=== PATIENT | female | born 1945 | race Caucasian/White ===

== ENCOUNTER → 2016-05-19 | Outpatient (CLI) | payer OTHER, MEDICARE | LOC: BHFA 10:00 | PROVIDERS: ATTEND Internal Medicine Interventional Cardiology | DX: I35.1 Nonrheumatic aortic (valve) insufficiency (principal) ==

== ENCOUNTER 2017-09-28 15:47 | Observation (INO) | payer OTHER, MEDICARE ==
--- NOTE | 2017-09-28 15:48 | EDPHY ---
H & P Time Seen by Provider: 09/28/17 15:48 HPI/ROS: HPI CHIEF COMPLAINT: Chest Pain. HISTORY OF PRESENT ILLNESS: Patient is a very pleasant 72-year-old female, she presents emergency room with chest discomfort. She was initially seen by Cardiology earlier today by Dr. Scott, and referred to the emergency room to have blood work and repeat EKG done. Patient states she has been in [place] recently and approximately 10 days ago she developed 2.5 hr of chest discomfort she describes a pressure sensation in the center of her chest. He did radiate down her right arm and then down her left arm. It went away on its own it was at rest. She states this started when she was in the bathroom. Nonexertional. Patient then states that 2 days ago at rest again she developed some pressure and heaviness in the center of her chest did not radiate. It lasted approximately an hour. She decided to make a follow-up appointment with Dr. Aiken, who is her security rover however was unable to get in and saw Dr. Scott today. Patient states that today she walked up the stairs to the cardiology appointment developed some exertional chest discomfort in the center of her chest. It lasted very briefly. She currently presents to the emergency room stating that she has 2/10 pain in her chest. Substernal. She does endorse some dyspnea on exertion. No pleuritic pain. She denies any abnormal lower extremity swelling. She does get trace edema around her ankle sometimes. She does state that she was recently in [place] and flew prolonged flights. However were compression stockings. Patient does state that she had a cardiac catheterization she thinks approximately 20 years ago that was normal this was for an abnormal troponin. Dr. Gar was her Data Processing Clerk at that time. Past Medical History: Glaucoma, denies hypertension or hyperlipidemia, , endorses osteoporosis Past Surgical History: Multiple orthopedic fractures, left knee surgery, total hysterectomy Social History: Denies daily use of drugs alcohol tobacco. Family History: She has significant cardiovascular disease history in her father side. Her father of [place] at 74, grandfather [place] at 55. ROS REVIEW OF SYSTEMS: A comprehensive 10 point review of systems is otherwise negative aside from elements mentioned in the history of present illness. Exam Constitutional Appears well non-toxic, triage nursing summary reviewed, vital signs reviewed, awake/alert. Eyes normal conjunctivae and sclera, EOMI, PERRLA. HENT normal inspection, atraumatic, moist mucus membranes, no epistaxis, neck supple/ no meningismus, no raccoon eyes. Respiratory clear to auscultation bilaterally, normal breath sounds, no respiratory distress, no wheezing. Cardiovascular rate normal, regular rhythm, no murmur, no edema, distal pulses normal. Gastrointestinal soft, non-tender, no rebound, no guarding, normal bowel sounds, no distension, no pulsatile mass. Genitourinary no CVA tenderness. Musculoskeletal no significant lower edema, no midline vertebral tenderness, full range of motion, no calf swelling, no tenderness of extremities, no meningismus, good pulses, neurovascularly intact. Skin pink, warm, & dry, no rash, skin atraumatic. Neurologic awake, alert and oriented x 3, AAOx3, moves all 4 extremities equally, motor intact, sensory intact, CN II-XII intact, normal cerebellar, normal vision, normal speech. Psychiatric normal mood/affect. Heme/Lymph/Immune no lymphadenopathy. Differential diagnosis includes but is not limited to: ACS, atypical chest pain , pneumothorax, pneumonia, pulmonary embolism, aortic dissection, congestive heart failure, tumor, musculoskeletal pain, esophageal pain, GERD, peptic ulcer disease, pancreatitis Medical Decision Making: Plan for this patient IV establishment with full cafeteria monitor obtain EKG, obtain troponin, obtain D-dimer, two view chest x- ray, full-dose aspirin will re-evaluate. Re-evaluation: EKG interpretation by me on record in Patient [employer] system. Impression time of EKG 16 12, this is sinus rhythm rate of 78 borderline T-wave abnormalities lead to 3 AVF. There is no ST elevation there is some T-wave flattening in V5 V6. When I compare this EKG to her previous EKG dated today she had EKG done at 2: 31 p.m. Appears to be similar morphology with the abnormal T-waves in inferior leads. HEART Score for Major Cardiac Events from [email or web address] on 09/28/2017 All calculations should be rechecked by clinician prior to use RESULT SUMMARY: 5 points Moderate Score (4-6 points) Risk of MACE of 12-16.6%. INPUTS: History > 1 = Moderately suspicious EKG > 1 = Non-specific repolarization disturbance Age > 2 = 65 Risk factors > 1 = 1-2 risk factors Initial troponin > 0 = normal limit 1834: I discussed this case in detail with Dr. Aguillon, recommend hospital admission for serial enzymes and stress test. I discussed this in detail greatly with the patient the patient's they have agreed for admission. Refer motion for cardiac evaluation and stress test. 1834: Patient is currently chest pain-free. 1844: Spoke with zahra Amador to admit. Source: Patient, Family, RN/MD - Personal History Tetanus Vaccine Date: 5 years ago Constitutional: Initial Vital Signs Temperature (C) 36.3 C 09/28/17 15:53 Heart Rate 82 09/28/17 15:53 Respiratory Rate 16 09/28/17 15:53 Blood Pressure 152/83 H 09/28/17 15:53 O2 Sat (%) 97 09/28/17 15:53 O2 Delivery Mode Room Air Allergies/Adverse Reactions: diazepam Allergy (Severe, Verified 09/28/17 18:59) HYPERACTIVE erythromycin base [Erythromycin Base] Allergy (Severe, Verified 09/28/17 18:59) NAUSEA/VOMITING morphine Allergy (Severe, Verified 09/28/17 18:59) Vomiting codeine [Codeine] Allergy (Unknown, Verified 09/28/17 18:59) Penicillins Allergy (Verified 09/28/17 18:59) Home Medications: Medication Instructions Recorded Calcium Carb W/Vit D [Calcium Carb 500 mg PO DAILY 09/28/17 W/Vit D 500/200 (*)] Cholecalciferol Vit D3 [Vitamin D3 1,000 units PO DAILY 09/28/17 (*)] Dorzolamide/Timolol/Pf [Cosopt Pf 1 drop RTEYE BID 09/28/17 Eye Drops] Doxepin HCl [SINEquan 10 MG (*)] 10 mg PO HS 09/28/17 Estradiol [Estradiol 1 MG (*)] 0.5 mg PO SUMOWEFR 09/28/17 Latanoprost 0.005% [Xalatan 0.005% 1 drops EACHEYE HS 09/28/17 (*)] Magnesium Oxide [Magnesium Oxide 400 mg PO DAILY 09/28/17 400 mg (*)] Anza-3 Fatty Acids [Fish Oil 1000 1,000 mg PO DAILY 09/28/17 mg (*)] Vitamin B Complex [Vitamin B 1 each PO DAILY 09/28/17 Complex (OTC)] Medical Decision Making - Data Points Laboratory Results: Laboratory Results 09/28/17 16:10 Medications Given: Discontinued Medications Aspirin Buffered (Aspirin Ec) 325 mg PO EDNOW ONE Stop: 09/28/17 16:08 Last Admin: 09/28/17 16:27 Dose: 325 mg Aspirin Buffered (Aspirin Ec) 325 mg PO DAILY SUSAN Stop: 03/28/18 08:59 Last Admin: 09/29/17 09:23 Dose: 325 mg Calcium/Vitamin D (Calcium Carb W/Vit D) 500 mg PO DAILY SUSAN Stop: 03/28/18 08:59 Last Admin: 09/29/17 11:57 Dose: Not Given Cholecalciferol (Vitamin D) 1,000 units PO DAILY SUSAN Stop: 03/28/18 08:59 Last Admin: 09/29/17 11:58 Dose: Not Given Doxepin HCl (Sinequan) 10 mg PO HS SUSAN Stop: 03/27/18 22:59 Last Admin: 09/28/17 23:02 Dose: 10 mg Estradiol (Estradiol) 0.5 mg PO SuMoWeFr@0900 SUSAN Stop: 03/28/18 08:59 Last Admin: 09/29/17 09:23 Dose: 0.5 mg Magnesium Oxide (Magnesium Oxide) 400 mg PO DAILY SUSAN Stop: 03/28/18 08:59 Last Admin: 09/29/17 11:58 Dose: Not Given Miscellaneous Medication (Dorzolamide/Timolol/Pf [Cosopt Pf Eye Drops]) 1 drop RTEYE BID SUSAN Stop: 03/28/18 08:59 Last Admin: 09/29/17 10:42 Dose: 1 drop Point of Care Test Results: Chemistry 09/28/17 09/28/17 16:20 16:16 POC Sodium 141 mEq/L mEq/L (135-145) POC Potassium 4.2 mEq/L mEq/L (3.3-5.0) POC Chloride 102.0 mEq/L mEq/L (97-110) POC Total CO2 28 mEq/L mEq/L (22-31) POC BUN 22 mg/dL mg/dL (7-23) POC Creatinine 1.1 mg/dL H mg/dL (0.6-1.0) POC Glucose 96 mg/dL mg/dL (70-100) POC Calcium 9.9 mg/dL mg/dL (8.5-10.4) POC Total Bilirubin 0.8 mg/dL mg/dL (0.1-1.4) POC AST 33 IU/L IU/L (14-46) POC ALT 20 IU/L IU/L (9-52) POC Alk Phosphatase 50 IU/L IU/L (38-126) POC Troponin I 0.00 ng/mL ng/mL (0.00-0.08) POC Total Protein 7.1 g/dL g/dL (6.3-8.2) POC Albumin 3.8 g/dL g/dL (3.5-5.0) Departure - Departure Disposition: [facility] Inpatient Acute Clinical Impression: Chest pain Qualifiers: Chest pain type: unspecified Qualified Code(s): R07.9 - Chest pain, unspecified Condition: Fair
[2017-09-28] MEDS ORDERED: ASPIRIN EC 325 MG TAB PO ONE (16:07)
--- NOTE | 2017-09-28 16:14 | CPEKG ---
Heart Rate: 78 RR Interval: 769 P-R Interval: 172 QRSD Interval: 74 QT Interval: 376 QTC Interval: 429 P Oxford: 71 QRS Oxford: 9 T Wave Oxford: -9 EKG Severity - BORDERLINE ECG - EKG Impression: SINUS RHYTHM EKG Impression: BORDERLINE T ABNORMALITIES, INFERIOR AND LATERAL LEADS Electronically Signed By: Lexi Aguillon 30-Sep-2017 08:27:24
[2017-09-28 17:44] LABS: PLATELET COUNT 222 10^3/uL (150-400)
[2017-09-28] MEDS ORDERED: ACETAMINOPHEN 325 MG TAB PO PRN (22:36)
[2017-09-28] MEDS ORDERED: ONDANSETRON 4 MG/2 ML VIAL IVP PRN (22:36)
[2017-09-28] MEDS ORDERED: oxyCODONE IR 5 MG TAB PO PRN (22:36)
[2017-09-28] MEDS ORDERED: traMADol 50 MG TAB PO PRN (22:36)
[2017-09-28] MEDS ORDERED: DOXEPIN HCL 10 MG CAP PO SCH (23:00)
--- NOTE | 2017-09-28 23:07 | GHP ---
[f rep st] HISTORY AND PHYSICAL DATE OF ADMISSION: 09/28/2017 CHIEF COMPLAINT: Chest pain. HISTORY: The patient is a 72-year-old female who just returned from a trip to [place] 5 days ago. Whi le she was in [place], she had an episode of severe chest pain midway through her trip. It was a sever e left-sided pressure that radiated initially down her right arm and then down her left arm. The ent doyle episode lasted 90 minutes. She returned home from her vacation and 2 days ago had recurrence of the same pattern of chest pain, although the episode 2 days ago was less severe. She saw Dr. Scott in the cardiology office today, and he sent her to the emergency room. Decision was made in conjunct ion with Dr. Aguillon to admit overnight for stress testing in the morning. Earlier today, when she was going to her cardiology appointment, the patient thought she would test herself by taking the stairs rather than the elevator and she got very short of breath walking up the stairs. PAST MEDICAL HISTORY: 1. Remote DVT. 2. Osteoporosis with compression fracture. 3. GERD. 4. Leaky valve. She does not know which one. 5. Asthma. 6. Lower extremity edema. MEDICATIONS: Please see computer record for a full detailed list. ALLERGIES: Penicillin. SOCIAL HISTORY: No smoking. No alcohol. She lives with her . REVIEW OF SYSTEMS: Complete review of systems obtained. Review of systems negative regarding consti tutional, HEENT, GI, pulmonary, cardiovascular, , hematology, skin, muscular, endocrine, and psych except for positives as noted in HPI. FAMILY HISTORY: Reviewed and noncontributory to presenting complaint. PHYSICAL EXAMINATION: GENERAL: Well-developed, well-nourished female, in no acute distress. VITAL SIGNS: Temperature is 36.5, pulse 82, blood pressure 123/77, 93% on room air. EYES: Normal conjunc tivae. Pupils equal, react to light. ENT: Normal ears, nose. Hearing intact. Normal teeth. Orop harynx moist. NECK: Trachea midline. No thyromegaly. CHEST: Normal respiratory effort. LUNGS: Clear to auscultation bilaterally. CARDIOVASCULAR: Regular rate and rhythm. No murmur. Lower extr emity edema. ABDOMEN: Soft, nontender. No hepatosplenomegaly. SKIN: Warm, dry, and intact. No r belén. MUSCULOSKELETAL: No cyanosis or clubbing. Strength 5/5 upper and lower extremities examinatio n. NEUROLOGIC: Cranial nerves intact. Normal sensation to light touch. PSYCHIATRIC: Alert and or iented x3. Normal affect. Normal judgment. Normal memory. LABORATORY DATA: White count 6.44, hematocrit 43.7, platelets 222. Sodium 141, potassium 4.2, chlor agatha 102, bicarb 28, BUN 22, creatinine 1.1. Glucose 96. LFTs are negative. Troponins negative. EK G was viewed by me. My personal interpretation normal sinus rhythm. No ST-T wave changes. Chest x- ray is negative. ASSESSMENT/PLAN: 1. Chest pain. We will follow serial troponins. Her story is somewhat concerning. She cannot do a treadmill due to a bad knee, having multiple surgeries in the past. We will order Lexiscan stress t est for the morning. 2. Leaky valve. Patient is overdue for repeat echocardiogram with Dr. Aiken. She requests that she have her echocardiogram done here tomorrow, which I guess would be reasonable given her worsening shortness of breath with exertion. CODE STATUS: Full. ADMISSION STATUS: We will admit to observation. Anticipate discharge home tomorrow if workup is neg ative. DVT PROPHYLAXIS: She is low risk. /[id number]/MODL
[2017-09-29] MEDS ORDERED: CALCIUM CARB W/VIT D 500 MG TAB PO SCH (09:00)
[2017-09-29] MEDS ORDERED: CHOLECALCIFEROL VIT D3 1,000 UNITS TAB PO SCH (09:00)
[2017-09-29] MEDS ORDERED: MAGNESIUM OXIDE 400 MG TAB PO SCH (09:00)
[2017-09-29] MEDS ORDERED: ASPIRIN EC 325 MG TAB PO SCH (09:00)
[2017-09-29] MEDS ORDERED: Dorzolamide/Timolol/Pf [Cosopt Pf Eye Drops] RTEYE SCH (09:00)
[2017-09-29] MEDS ORDERED: ESTRADIOL 1 MG TAB PO SCH (09:00)
--- NOTE | 2017-09-29 09:30 | SOAPPROG ---
ORTE[facility] Progress Note Assessment/Plan: Assessment: 72-year-old female with a history of moderate aortic insufficiency admitted with atypical chest discomfort. Her ECG, D-dimer, chest x-ray and cardiac enzymes have been negative. At this point, there is no indication of an infectious process, DVT/PE and the clinical suspicion for dissection is low. Her overall risk factor profile is also fairly benign. I think most likely, her discomfort is noncardiac in nature. I do, however, think it would be prudent to proceed with further testing to rule out a cardiac source. Plan: She is scheduled for an exercise myocardial perfusion imaging study which can be performed this afternoon. She has had an echocardiogram. The preliminary reading indicates aortic insufficiency without segmental wall motion abnormalities. Further recommendations will be made pending the outcome of her stress test. 09/29/17 09:30 Subjective: The patient was seen and examined. Her chart was reviewed. She was admitted through our office by Dr. Scott. She has a history of aortic insufficiency and was admitted with atypical chest pain. Apparently, she had a 1 hr and 15 min episode of chest pain during of visit to [place]. This was described as a severe episode of chest pain. Subsequently this resolved and she had no further symptoms until about 3 or 4 days ago. At that time she had a 20 min episode of chest discomfort. Both of these episodes occurred at rest and involve radiation intermittently to her right arm and left arm. She had no dyspnea. She had no radiation to the throat or jaw. There was no associated nausea, vomiting or diaphoresis. She does have a history of musculoskeletal chest pain. She continues to have mild costochondral pain bilaterally. She does, however, note that this pain is distinctly different from her index related complaints. She denies any fever, chills or sweats. On 1 occasion when she was climbing stairs she did notice mild chest pain that resolved almost immediately. She has not had any cough. She notes no hemoptysis or sputum production. She does have a history of a previous DVT in her calf. This was associated with the an injury to the ankle during her youth. During this admission serial troponins have been negative and her chest x-ray was unremarkable. Her D-dimer was unremarkable. Her ECG demonstrates only minor nonspecific changes. She is currently pain-free. Objective: Vital Signs Temp Pulse Resp BP Pulse Ox 36.4 C 73 14 134/73 H 92 09/29/17 07:12 09/29/17 07:12 09/29/17 07:12 09/29/17 07:12 09/29/17 07:12 Physical Exam - Physical Exam General Appearance: WD/WN, no apparent distress Neck: non-tender, full range of motion Respiratory: lungs clear, normal breath sounds, other (She has mild reproducible bilateral chest wall discomfort involving the costochondral junction), No respiratory distress, No accessory muscle use, No decreased breath sounds Cardiac/Chest: normal peripheral pulses, regular rate, rhythm, diastolic murmur (1/6 decrescendo diastolic murmur left sternal border), No edema, No gallop, No JVD, No bradycardia Peripheral Pulses: 2+: carotid (R), carotid (L) Abdomen: non-tender, soft Pelvic Exam: deferred Rectal: deferred Skin: normal color Neuro/Psych: alert, oriented x 3 ICD10 Worksheet Patient Problems: Problems Problem Status Onset Chest pain Acute Bronchitis Active Osteoporosis Active
--- NOTE | 2017-09-29 09:46 | ECHO ---
[email or web address] [address] [address] Main: [phone] Fax: Transthoracic Echocardiogram Name: MUKUL POSADAS MR#: [id number] Study Date: 09/29/2017 Study Time: 08:19 AM Date of : 1945 Age: 72 year(s) Height: 160 cm (63 in.) Weight: 53.98 kg (119 lb.) BSA: 1.55 m2 Gender: Female Examination: Echo Indication: Leaky valve Image Quality: Adequate Contrast: Requested by: Geri Perez BP: 134 mmHg/74 mmHg Heart Rate: Rhythm: Indication: Leaky valve Procedure Staff Asphalt Raker: Myrtle Sheppard RDCS Reading Physician: Dell Tran MD Requesting Provider: Conclusions: Normal size left ventricle. Normal global systolic LV function. EF is 58 %. No regional wall motion abnormality. Grade 1 diastolic dysfunction (abnormal relaxation). Mild to moderate mitral regurgitation. Aortic sclerosis is present. Moderate aortic valve regurgitation is present. Mild tricuspid regurgitation is present. Right ventricular systolic pressure measures 28mmHg. Measurements: Chambers Valvular Assessment AV/MV Valvular Assessment TV/PV Normal Normal Normal Name Value Range Name Value Range Name Value Range Ao Obdulia (2D): 3.0 cm (1.4 cm-2.6 AV Vmax: 1.19 m/s (1 m/s-1.7 TR Vmax: 2.38 mm/s ( - ) cm) m/s) TR PGmax: 23 mmHg ( - ) IVSd (2D): 0.8 cm (0.6 cm-1.1 AV meanP mmHg ( - ) syst. PAP: 28 mmHg ( - ) cm) CAYDEN (VTI): 1.9 cm ( - ) PV Vmax: 0.66 m/s (0.6 m/s-0.9 LVDd (2D): 3.9 cm (3.9 cm-5.3 AR (PHT): 396 ms ( - ) m/s) cm) MV E Vmax: 0.37 m/s ( - ) PV PGmax: 2 mmHg ( - ) LVDs (2D): 2.4 cm (2.1 cm-4 MV A Vmax: 0.55 m/s ( - ) cm) MV E/A: 0.67 ( - ) LVPWd (2D): 0.8 cm ( - ) MV PHT: 0.081 s ( - ) LVOTd 1.9 cm 1.9 cm mm MVA (PHT): 2.7 s ( - ) LVEF (BP): 58 % (>=55 %) RVDd(2D): 2.6 cm (1.9 cm-3.8 cmmm) Continued Measurements: Patient: MUKUL POSADAS Study Date: 09/29/2017 Page 1 of 2 08:19 AM Chambers Valvular Assessment AV/MV Valvular Assessment TV/PV Name Value Name Value Name Value LADs: 3.0 cm MV DecTime: 257 m/s CVP (est.): 5 mmHg LADs Lon.7 cm MV E' Septal: 0.04 m/s LA Area: 10.4 cm2 MV E/E' Septal: 8.40 RA Area: 13.5 cm2 MV E/E' Lateral: 5.30 AR Vmax: 4.51 cm/s Additional Vessels Name Value Ao Ascendin.7 cm Inferior Vena Cava: 1.2 cm Findings: Left Ventricle: Normal size left ventricle. No LV hypertrophy. Normal global systolic LV function. EF is 58 %. No regional wall motion abnormality. Grade 1 diastolic dysfunction (abnormal relaxation). Right Ventricle: Normal size right ventricle. Normal RV function. Left Atrium: The left atrium is normal in size. Right Atrium: The right atrium is normal in size. Mitral Valve: The mitral valve is normal in appearance and function. Mild to moderate mitral regurgitation. No mitral stenosis is present. Aortic Valve: The aortic valve is tri-leaflet. Aortic sclerosis is present. Moderate aortic valve regurgitation is present. No aortic valve stenosis is present. Tricuspid Valve: The tricuspid valve is normal in appearance and function. Mild tricuspid regurgitation is present. The pulmonary artery pressure is normal. Right ventricular systolic pressure measures 28mmHg. Pulmonic Valve: The pulmonic valve is normal in appearance and function. There is no pulmonic regurgitation seen. Aorta: The aorta is normal. Normal size aortic root measuring 3.0 cm. Normal size ascending aorta measuring 2.7 cm. IVC: The IVC is normal sized. Pericardium: No pericardial effusion. No pleural effusion. (No Signature Object) Patient: MUKUL POSADAS Study Date: 09/29/2017 Page 2 of 2 08:19 AM [id number]
--- NOTE | 2017-09-29 12:41 | ASMTCMCOM ---
CM Note CM Note Notes: 09/29/2017 Case Management Note Discussed pt during interdisciplinary rounds this morning. Pt admitted for chest pain with subsequent workup. There are no therapy evals ordered at this time. Met with patient to discuss discharge planning. Pt has cancelled her planned flight to visit her one year old granddaughter in [place]. Pt is independent in ADL's, able to drive safely and has no difficulties preparing meals. Pt is to [place] [phone]. Case Management d/c poc: independent with follow up as directed. Case Management to follow. Date Signed: 09/29/2017 12:41 PM Electronically Signed By:Heather Titus RN
[2017-09-29] MEDS ORDERED: REGADENOSON 0.4 MG/5 ML SYR IVP ONE (14:19)
[2017-09-29 15:27] VITALS: BP 141/69
--- NOTE | 2017-09-29 15:35 | CPR ---
[f rep st] NONINVASIVE CARDIAC PROCEDURE REPORT PROCEDURE: Exercise treadmill MPI study. SUPERVISING PRODUCT CONSULTANT: Dell Tran MD. INDICATION FOR STRESS TESTING: Episodes of chest pressure, abnormal electrocardiogram. PRE: After obtaining informed consent, the patient was placed on electrocardiogram. Initial EKG shows sinus rhythm, normal axis, T-wave inversion noted in inferior lateral leads. The patient denies any chest pain, shortness of breath, or symptoms suggesting of ischemia. Initial blood pressure of 116/70, saturation 96% on room air. STRESS: The patient was placed on exercise treadmill, following standard [place] protocol with the following findings. 1. The patient exercised for 4 minutes. 2. 5.4 METs. 3. Patient obtained a heart rate of 157 beats per minute, which was 107% of maximum predicted heart rate. 4. Millimeter ST depression noted in inferior lateral leads at peak exercise. 5. The patient reporting no chest pain or symptoms suggesting of ischemia. 6. BP response resting 116/70, peak: 160/86. 7. SpO2 remained greater than 90% throughout testing. 8. Rare PVC was noted with exercise. 9. Test was stopped due to maximum effort. 10. Jha treadmill score of -1. RECOVERY: Patient recovered for 5 minutes with heart rate decreasing back to baseline and blood pressure. She remains asymptomatic of chest pain or symptoms suggesting of ischemia. Vital signs are stable. She was taken down to Nuclear Medicine for post-stress imaging. IMPRESSION: A 72-year-old female with reported episodes of chest pressure. Two episodes of chest pressure over the last 7-10 days. Noted to have abnormal resting electrocardiogram. Patient with poor exercise tolerance, only able to go 4 minutes before reaching peak heart rate. The patient was noted resting EKG with ST depression in inferior lateral leads, which did not significantly change with exercise. Due to the patient's underlying resting EKG, treadmill testing for evaluation of ischemia would cause a sensitivity for validity of exercise treadmill testing.. More clinical just would recommend clinical chest pain evaluation be based off myocardial perfusion imaging. Vital signs are stable. Patient left the stress lab, nuclear images pending /[id number]/MODL MTDD
--- NOTE | 2017-09-29 16:50 | HOSPPROG ---
Hospitalist Progress Note Assessment/Plan: 72 yo F w AI here w cp neg eval home today see dc summary Subjective: stress neg. echo unchanged Objective: Vital Signs Temp Pulse Resp BP Pulse Ox 36.6 C 74 12 141/69 H 97 09/29/17 15:24 09/29/17 15:24 09/29/17 15:24 09/29/17 15:24 09/29/17 15:24 - Physical Exam Constitutional: no apparent distress, appears nourished Eyes: PERRL, anicteric sclera Ears, Nose, Mouth, Throat: moist mucous membranes, hearing normal Cardiovascular: regular rate and rhythym, no murmur, rub, or gallop Respiratory: no respiratory distress, no rales or rhonchi Gastrointestinal: normoactive bowel sounds, soft, non-tender abdomen Genitourinary: no bladder fullness, No stewart in urethra Skin: warm, normal color Musculoskeletal: full muscle strength Neurologic: AAOx3 ICD10 Worksheet Patient Problems: Problems Problem Status Onset Chest pain Acute Bronchitis Active Osteoporosis Active
--- NOTE | 2017-09-29 17:06 | GDS ---
[f rep st] DISCHARGE SUMMARY History and physical by Dr. Geri Perez. The patient presented with exertional chest pain that ra diated to her left arm. She had an EKG that showed some inferior nonspecific T-wave changes but is o therwise nonischemic. She had negative troponin. She had a negative D-dimer. She underwent a stres s test, showing normal nuclear images, but what was suspected to be likely false positive EKG changes . She had an echocardiogram demonstrating moderate aortic insufficiency, which is a known entity for her. She was discharged home on an unchanged medication regimen. /[id number]/MODL
[2017-09-29] MEDS ORDERED: LATANOPROST 0.005% 2.5 ML OPHT DROPS EACHEYE SCH (21:00)
== END 2017-09-29 17:38 | disposition home or self-care (01) ==
LOC: EDSTATUS 15:47 → CED 15:47 → CEDHOLD 18:44 → F2W 20:57
PROVIDERS: ADMIT Internal Medicine; ATTEND Internal Medicine
DX: R07.9 Chest pain, unspecified (principal); I35.1 Nonrheumatic aortic (valve) insufficiency; R06.09 Other forms of dyspnea; R60.9 Edema, unspecified; M81.0 Age-related osteoporosis without current pathological fracture; K21.9 Gastro-esophageal reflux disease without esophagitis; H40.9 Unspecified glaucoma; J45.909 Unspecified asthma, uncomplicated; Z86.718 Personal history of other venous thrombosis and embolism; Z82.49 Family history of ischemic heart disease and other diseases of the circulatory system; Z88.0 Allergy status to penicillin
CPT/HCPCS: 71046; 78452; 93005; 93017; 93306; 99285; A9500; G0378; 80053-PO; 84484-PO; J2785

== ENCOUNTER → 2017-09-28 | Outpatient (CLI) | payer OTHER, MEDICARE | LOC: BHCLAF 15:00 | PROVIDERS: ATTEND Internal Medicine Cardiovascular Disease | DX: R07.9 Chest pain, unspecified (principal) | CPT/HCPCS: 93005-PO ==

== ENCOUNTER → 2018-02-10 | Outpatient (CLI) | payer OTHER, MEDICARE | LOC: FCPNEURO 20:00 | PROVIDERS: ATTEND Psychiatry & Neurology Sleep Medicine | DX: G47.33 Obstructive sleep apnea (adult) (pediatric) (principal); G47.61 Periodic limb movement disorder ==